=== PATIENT | female | born 1950 | race Caucasian/White ===

== ENCOUNTER → 2016-10-20 | Outpatient (CLI) | payer OTHER ==
--- NOTE | 2016-10-20 14:12 | DX ---
Two-view abdomen series 1204 hours. History: Epigastric pain. Possibly swallowed a fishbone. Findings: There is no evidence of radiopaque foreign body within the abdomen. There are no air-fluid levels or free air. There is suspicion of some thickening of the gastric wall. Bowel gas pattern is o therwise unremarkable. There are some phleboliths in the lower pelvis. Mild dextroscoliosis is noted of the mid to upper lumbar spine with associated mild disk space narrowing along the left side of L2- L3 and right-side of L3-L4. Impression: 1. No evidence of radiopaque foreign body to suggest fishbone. 2. Possible thickening associated with the gastric body and antrum. Rule out gastritis. A voice mail message was left for Pavithra Donato at 1409 hours
== END ==
LOC: BMCIMAGING 12:04
PROVIDERS: ATTEND Physician Assistant
DX: R10.13 Epigastric pain (principal)

== ENCOUNTER → 2016-12-02 | Outpatient (CLI) | payer OTHER | LOC: FIMAGING 13:38 | PROVIDERS: ATTEND Family Medicine | DX: Z12.39 Encounter for other screening for malignant neoplasm of breast (principal); R92.2 Inconclusive mammogram | CPT/HCPCS: G0206 ==

== ENCOUNTER → 2017-05-13 | Outpatient (CLI) | payer OTHER | LOC: BMCIMAGING 12:32 | PROVIDERS: ATTEND Family Medicine | DX: Z12.31 Encounter for screening mammogram for malignant neoplasm of breast (principal); Z80.3 Family history of malignant neoplasm of breast | CPT/HCPCS: G0202 ==

== ENCOUNTER → 2017-06-17 | Outpatient (CLI) | payer OTHER | LOC: BMCIMAGING 10:24 | PROVIDERS: ATTEND Family Medicine | DX: Z13.820 Encounter for screening for osteoporosis (principal) ==